=== PATIENT | female | born 1995 | race Caucasian/White ===

== ENCOUNTER 2017-01-28 14:23 | Emergency (ER) | payer MEDICAID, SELFPAY ==
[2017-01-28] MEDS ORDERED: PENTASA500 MG/CAP PO (14:40)
[2017-01-28] MEDS ORDERED: CIPRODEX OTIC7.5 M1 OT (15:54)
== END 2017-01-28 16:07 ==
LOC: EDMED 14:23
DX: H60.331 Swimmer's ear, right ear (principal); Z88.6 Allergy status to analgesic agent